=== PATIENT | female | born 1970 | race Caucasian/White ===

== ENCOUNTER 2019-01-23 03:02 | Emergency (ER) | payer MEDICAID ==
[2019-01-23] MEDS ORDERED: Aspirin 81 MG Tab.Chew PO ONE (03:29)
--- NOTE | 2019-01-23 03:31 | EDM.PDOC ---
ED HPI GENERAL MEDICAL PROBLEM - General Stated Complaint: CHEST PAIN Time Seen by Provider: 01/23/19 03:02 Source of Information: Reports: Patient History Limitations: Reports: No Limitations - History of Present Illness INITIAL COMMENTS - FREE TEXT/NARRATIVE: 48 y.o.w.f with a H/O CAD CABGX6 2009, came to the ED with SSCP 10. CP subsided after receiving ASA and one SL Nitro. Initial EVCG showed a NSR with acute ST T wave changes. BP 127/80 Pulse 77 RR 16 Temp 97.4 Pulse ox 100% on RA Onset Date: 01/23/19 Onset Time: 02:00 Duration: Hour(s):, Getting Worse, Intermittent Location: Reports: Chest Quality: Reports: Dull, Same as Previous Episode Severity: Moderate Improves with: Reports: Medication Worsens with: Reports: Other Context: Reports: Other (H/O CAD) Associated Symptoms: Reports: Chest Pain - Related Data Allergies Allergy/AdvReac Type Severity Reaction Status Date / Time No Known Allergies Allergy Verified 06/22/14 03:55 Home Meds: Home Meds Amitriptyline [Elavil] 25 mg PO BEDTIME 01/23/19 [History] Aspirin [Adult Low Dose Aspirin EC] 81 mg PO DAILY 01/23/19 [History] Empagliflozin [Jardiance] 25 mg PO DAILY 01/23/19 [History] Insulin Aspart [NovoLOG] 6 units SQ TIDMEALS 01/23/19 [History] Insulin Glarg,Human.Rec.Analog [Lantus Solostar] 80 units SQ BEDTIME 01/23/19 [ History] Levothyroxine 112 mcg PO ACBREAKFAST 01/23/19 [History] Lisinopril 20 mg PO DAILY 01/23/19 [History] Metoprolol Succinate [Toprol XL] 25 mg PO DAILY 01/23/19 [History] atorvaSTATin [Lipitor] 40 mg PO DAILY 01/23/19 [History] metFORMIN [Glucophage] 1,000 mg PO BIDMEALS 01/23/19 [History] ED ROS GENERAL - Review of Systems Review Of Systems: See Below Constitutional: Reports: No Symptoms HEENT: Reports: No Symptoms Respiratory: Reports: No Symptoms Cardiovascular: Reports: Chest Pain Endocrine: Reports: No Symptoms GI/Abdominal: Reports: No Symptoms : Reports: No Symptoms Musculoskeletal: Reports: No Symptoms Skin: Reports: No Symptoms Neurological: Reports: No Symptoms Psychiatric: Reports: No Symptoms Hematologic/Lymphatic: Reports: No Symptoms Immunologic: Reports: No Symptoms ED EXAM, GENERAL - Physical Exam Exam: See Below Exam Limited By: No Limitations General Appearance: Alert, WD/WN, Mild Distress Eye Exam: Bilateral Eye: Normal Inspection Ears: Normal External Exam Ear Exam: Bilateral Ear: Auricle Normal Nose: Normal Inspection, Normal Mucosa, No Blood Throat/Mouth: Normal Inspection, Normal Lips, Normal Voice, No Airway Compromise Head: Atraumatic, Normocephalic Neck: Normal Inspection, Supple, Non-Tender, Full Range of Motion Respiratory/Chest: No Respiratory Distress, Lungs Clear, Normal Breath Sounds, Chest Non-Tender Cardiovascular: Normal Peripheral Pulses, Regular Rate, Rhythm, No Edema, No Gallop, No Rub Peripheral Pulses: 2+: Brachial (L) GI/Abdominal: Normal Bowel Sounds, Soft, Non-Tender, No Organomegaly, No Distention (Female) Exam: Deferred Rectal (Female) Exam: Deferred Back Exam: Normal Inspection, Full Range of Motion Extremities: Normal Inspection, Normal Range of Motion, Non-Tender Neurological: Alert, Oriented, CN II-XII Intact, Normal Cognition, Normal Gait Psychiatric: Normal Affect, Normal Mood Skin Exam: Warm, Dry, Intact, Normal Color, No Rash Lymphatic: No Adenopathy EKG INTERPRETATION EKG Date: 01/23/19 Time: 03:25 Rhythm: NSR Rate (Beats/Min): 77 [place]: LAD-Left [place] Deviation P-Wave: Present QRS: Normal ST-T: Normal QT: Normal Comparison: NA - No Prior EKG Course - Vital Signs Text/Narrative:: 48 y.o.w.f with a H/O CAD CABGX6 2009, came to the ED with SSCP 02/06. CP subsided after receiving ASA and one SL Nitro. Initial EVCG showed a NSR with acute ST T wave changes. BP 127/80 Pulse 77 RR 16 Temp 97.4 Pulse ox 100% on RA PE: Morbid obese 48 y.o.w.f in NAD after ASA and one NTG SL were given ImagingL CXR: NAD Labs: WBC 10.6 HGB 10.7 MCV 67.4 Na K BUN 19 Cr 1.4 GFR 40 Glc 243 Troponin : 0.088 2nd EC01/23/19 6.33 am: T wave inversions in Lead I [id number] (change in 3 hours) Impression: NSTEMI Tx: ASA, NTG SL, Heparin drip, no bolus Reexam: Troponin taken at 6.33 am: 0.241, Pt remained pain free, vitals stable while here in the ED 6.56 am Consultation: Dr. High, Hospitalist, [facility]: [id number] the pt for transfer and further care Plan: Transfere to [facility], Pt agreed to Tx plan Signed out Pt to Dr. Luong at 8 am pending EMS to arrive and transfer Pt to [facility] Last Recorded V/S: Last Vital Signs Temp 36.3 C 01/23/19 03:05 Pulse Resp BP 119/64 01/23/19 03:37 Pulse Ox - Orders/Labs/Meds Orders: Active Orders 24 hr Category Date Time Status EKG Documentation Completion [RC] ASDIRECTED Care 01/23/19 03:30 Active EKG Documentation Completion [RC] ASDIRECTED Care 01/23/19 06:00 Active Chest 1V Frontal [CR] Stat Exams 01/23/19 03:09 Taken Heparin Sodium/0.45% NaCl [Heparin 25,000 Units in 1/2 Med 01/23/19 07:00 Active NS 500 ML] 25,000 units in 500 ml IV TITRATE EKG 12 Lead [EK] Routine Ther 01/23/19 03:30 Ordered EKG 12 Lead [EK] Routine Ther 01/23/19 06:00 Ordered Medication Orders Heparin Sodium/Sodium Chloride (Heparin 25,000 Units In 1/2 Ns 500 Ml) 25,000 units in 500 mls @ 20 mls/hr IV TITRATE HASEEB; Protocol Last Admin: 01/23/19 07:29 Dose: 9.25 units/kg/hr, 20.139 mls/hr Labs: Laboratory Tests 01/23/19 01/23/19 01/23/19 Range/Units 03:25 03:25 03:25 WBC 10.6 (4.5-12.0) X10-3/uL RBC 5.00 (3.23-5.20) x10(6)uL Hgb 10.7 L (11.5-15.5) g/dL Hct 34.1 (30.0-51.3) % MCV 68.1 L (80-96) fL MCH 21.4 L (27.7-33.6) pg MCHC 31.4 L (32.2-35.4) g/dL RDW 17.1 H (11.5-15.5) % Plt Count 360 (125-369) X10(3)uL MPV 8.0 (7.4-10.4) fL Neut % (Auto) 55.1 (46-82) % Lymph % (Auto) 34.0 (13-37) % [place] % (Auto) 4.3 (4-12) % Eos % (Auto) 6 H (1.0-5.0) % Baso % (Auto) 1 (0-2) % Neut # (Auto) 5.8 (1.6-8.3) # Lymph # (Auto) 3.6 (0.6-5.0) # [place] # (Auto) 0.5 (0.0-1.3) # Eos # (Auto) 0.6 (0.0-0.8) # Baso # (Auto) 0.1 (0.0-0.2) # PT (8.7-11.1) INR (0.89-1.13) Sodium 138 (135-145) mmol/L Potassium 4.0 (3.5-5.3) mmol/L Chloride 101 (100-110) mmol/L Carbon Dioxide 25 (21-32) mmol/L BUN 19 H (7-18) mg/dL Creatinine 1.4 H (0.55-1.02) mg/dL Est Cr Clr Drug Dosing TNP Estimated GFR (MDRD) 40 L (>60) BUN/Creatinine Ratio 13.6 (9-20) Glucose 242 H (80-116) mg/dL Calcium 9.0 (8.6-10.2) mg/dL Troponin I 0.088 H* (<0.017-0.056) ng/mL 01/23/19 01/23/19 Range/Units 03:25 06:20 WBC (4.5-12.0) X10-3/uL RBC (3.23-5.20) x10(6)uL Hgb (11.5-15.5) g/dL Hct (30.0-51.3) % MCV (80-96) fL MCH (27.7-33.6) pg MCHC (32.2-35.4) g/dL RDW (11.5-15.5) % Plt Count (125-369) X10(3)uL MPV (7.4-10.4) fL Neut % (Auto) (46-82) % Lymph % (Auto) (13-37) % [place] % (Auto) (4-12) % Eos % (Auto) (1.0-5.0) % Baso % (Auto) (0-2) % Neut # (Auto) (1.6-8.3) # Lymph # (Auto) (0.6-5.0) # [place] # (Auto) (0.0-1.3) # Eos # (Auto) (0.0-0.8) # Baso # (Auto) (0.0-0.2) # PT 10.4 (8.7-11.1) INR 1.07 (0.89-1.13) Sodium (135-145) mmol/L Potassium (3.5-5.3) mmol/L Chloride (100-110) mmol/L Carbon Dioxide (21-32) mmol/L BUN (7-18) mg/dL Creatinine (0.55-1.02) mg/dL Est Cr Clr Drug Dosing Estimated GFR (MDRD) (>60) BUN/Creatinine Ratio (9-20) Glucose (80-116) mg/dL Calcium (8.6-10.2) mg/dL Troponin I 0.241 H* (<0.017-0.056) ng/mL Meds: Medications Generic Name Dose Route Start Last Admin Trade Name Freq PRN Reason Stop Dose Admin Heparin Sodium/Sodium Chloride 25,000 units in 500 mls @ 20 mls/hr 01/23/19 07 :00 01/23/19 07:29 Heparin 25,000 Units In 1/2 Ns 500 Ml IV 9.25 units/kg/hr TITRATE HASEEB 20.139 mls/hr Administration Protocol Discontinued Medications Generic Name Dose Route Start Last Admin Trade Name Freq PRN Reason Stop Dose Admin Aspirin 324 mg 01/23/19 03:29 01/23/19 03:20 Aspirin PO 01/23/19 03:30 324 mg ONETIME ONE Administration Nitroglycerin 0.4 mg 01/23/19 03:37 01/23/19 03:37 Nitrostat SL 01/23/19 03:38 0.4 mg ONETIME ONE Administration Departure - Departure Time of Disposition: 07:55 Disposition: DC/Tfer to [facility] 02 Reason for Transfer *Q: Primary PCI Indicated (No [employer] Loader) Condition: Fair Clinical Impression: Non-ST elevation [place] (NSTEMI) Referrals: Claudia Flood CLE[employer] DRILLER HELPER [Primary Care Provider] - - My Orders Last 24 Hours: My Active Orders 01/23/19 03:09 Chest 1V Frontal [CR] Stat 01/23/19 03:30 EKG Documentation Completion [RC] ASDIRECTED EKG 12 Lead [EK] Routine 01/23/19 06:00 EKG Documentation Completion [RC] ASDIRECTED EKG 12 Lead [EK] Routine 01/23/19 07:00 Heparin Sodium/0.45% NaCl [Heparin 25,000 Units in 1/2 NS 500 ML] 25,000 units in 500 ml IV TITRATE - Assessment/Plan Last 24 Hours: My Active Orders 01/23/19 03:09 Chest 1V Frontal [CR] Stat 01/23/19 03:30 EKG Documentation Completion [RC] ASDIRECTED EKG 12 Lead [EK] Routine 01/23/19 06:00 EKG Documentation Completion [RC] ASDIRECTED EKG 12 Lead [EK] Routine 01/23/19 07:00 Heparin Sodium/0.45% NaCl [Heparin 25,000 Units in 1/2 NS 500 ML] 25,000 units in 500 ml IV TITRATE
[2019-01-23] MEDS ORDERED: Nitroglycerin 0.4 MG Tab.SL SL ONE (03:37)
[2019-01-23] MEDS ORDERED: Heparin Sodium/0.45% NaCl 25,000 UNITS/500 ML BAG IV SCH (07:00)
[2019-01-23] MEDS ORDERED: Sodium Chloride 0.9% 1,000 ML IV SCH (08:00)
== END 2019-01-23 08:36 ==
LOC: FB.ED 03:02
DX: I21.4 Non-ST elevation (NSTEMI) myocardial infarction (principal); I25.10 Atherosclerotic heart disease of native coronary artery without angina pectoris; Z79.82 Long term (current) use of aspirin; Z79.899 Other long term (current) drug therapy; Z79.4 Long term (current) use of insulin; Z95.1 Presence of aortocoronary bypass graft
CPT/HCPCS: 36415; 71045; 80048; 84484; 85025; 85610; 93005; 96365; 99285; A9270; J1644